=== PATIENT | female | born 1965 ===

== ENCOUNTER 2018-11-21 10:44 | Outpatient (CLI) | payer OTHER | END 2018-11-21 10:48 | disposition home or self-care (01) | LOC: MAMO-SONO 10:44 | DX: Z01.812 Encounter for preprocedural laboratory examination (principal) ==

== ENCOUNTER 2018-11-21 11:58 | Outpatient (CLI) | payer OTHER | END 2018-11-21 14:18 | disposition home or self-care (01) | LOC: LAB 11:58 | DX: Z11.4 Encounter for screening for human immunodeficiency virus [HIV] (principal); N63.10 Unspecified lump in the right breast, unspecified quadrant; N63.20 Unspecified lump in the left breast, unspecified quadrant ==